=== PATIENT | female | born 1965 | race American Indian/Alaskan Native ===

== ENCOUNTER 2022-02-02 10:13 | Emergency (ER) | payer MEDICAID ==
[2022-02-02] MEDS ORDERED: SODIUM CHLORIDE 0.9% 1000 ML 1,000 ML IV ONE (11:16)
[2022-02-02] MEDS ORDERED: ONDANSETRON 4 MG/2 ML INJ IV ONE (11:16)
[2022-02-02] MEDS ORDERED: MORPHINE 4 MG/1 ML INJ IV ONE (11:16)
[2022-02-02 13:21] LABS: Blood Urea Nitrogen 8 mg/dL (7-17); Calcium 8.9 mg/dL (8.4-10.2); Hemolysis Index 46
[2022-02-02 13:34] LABS: Basophils # (Auto) 0.1 K/mm3 (0.0-0.1); Basophils % (Auto) 1.1 % (0.0-1.8); Eosinophils % (Auto) 0.4 % (0.0-4.3); Hematocrit 42.2 % (30.3-42.9); Hemoglobin 13.6 gm/dl (10.1-14.3); Lymphocytes # (Auto) 1.5 K/mm3 (1.2-5.4); Lymphocytes % (Auto) 22.9 % (13.4-35.0); Mean Corpuscular HGB Conc 32 % (30-34); Mean Corpuscular Volume 80 fl (79-97); Monocytes # (Auto) 0.5 K/mm3 (0.0-0.8); Monocytes % (Auto) 7.8 % (0.0-7.3); Platelet Count 261 K/mm3 (140-440); Red Blood Count 5.29 M/mm3 (3.65-5.03); Red Cell Distribution Width 15.8 % (13.2-15.2)
[2022-02-02 13:51] LABS: BUN/Creatinine Ratio 11
[2022-02-02 14:34] LABS: Bacteria,Urine 1+ /HPF (Negative); Hyaline Casts,Urine 1 /LPF; Mucus,Urine FEW /HPF
[2022-02-02 14:36] LABS: Color,Urine Straw (Yellow)
[2022-02-02 14:46] LABS: Amphetamine Screen,Urine Negative; Benzodiazepines Screen,Urine Negative; Cannabinoid Screen,Urine Negative; Cocaine Screen,Urine Negative; Methadone Screen,Urine Negative; Opiate Screen,Urine Negative
--- NOTE | 2022-02-02 14:55 | Cat Scan Report ---
CT ABDOMEN AND PELVIS WITH CONTRAST HISTORY: pain COMPARISON: None. TECHNIQUE: Axial CT images were obtained through the abdomen and pelvis after 100 cc of Omnipaque 350 IV contrast. Sagittal and coronal reformatted images. All CT scans at this location are performed us ing CT dose reduction for ALARA by means of automated exposure control. FINDINGS: CT ABDOMEN: Lung Bases: Clear. Moderate hiatal hernia is noted. Liver: There is mild hepatic steatosis. No enlargement or mass. Biliary: Cholelithiasis. No evidence for acute cholecystitis or biliary dilatation. Spleen: No significant abnormality. Unenlarged. Pancreas: No significant abnormality. Adrenals: No significant abnormality. Kidneys: Few scattered simple appearing renal cysts are noted measuring up to 1.5 cm. No hydronephros is. Lymphatics: No pathologic adenopathy. Vasculature: No significant abnormality. Bowel/Peritoneum: No significant abnormality. No free air. No free fluid. Normal appendix. CT PELVIS: : The uterus is mildly enlarged and lobular consistent with fibroid disease. The adnexa are unremar kable. Normal bladder. Osseous Structures: No significant abnormality. Additional Findings: None IMPRESSION: No acute inflammatory process. Hepatic steatosis. Cholelithiasis but no evidence for acute cholecystitis. Hiatal hernia. Moderate uterine fibroid disease. Signer Name: Williams Urbina Jr, MD Signed: 02/02/2022 2:50 PM Workstation Name: [id number]
[2022-02-02 16:37] LABS: Alanine Aminotransferase 18 units/L (7-56); Blood Urea Nitrogen 7 mg/dL (7-17); Calcium 8.8 mg/dL (8.4-10.2); Hemolysis Index 11
[2022-02-02 16:43] LABS: BUN/Creatinine Ratio 12
--- NOTE | 2022-02-02 16:59 | Emergency Department Report ---
ED General Adult HPI - General Chief complaint: Abdominal Pain Stated complaint: KIDNEY STONES PUI?: No Time Seen by Provider: 02/02/22 11:11 Source: patient, EMS Mode of arrival: Stretcher Limitations: No Limitations - History of Present Illness Initial comments: PATIENT REPORTS LOWER FLANK AND BACK PAIN. PATIENT REPORTS A HISTORY OF KIDNEY STONES AND STATES "THE PAIN FEELS THE SAME" -: Gradual, week(s) (3) Location: abdomen Radiation: back Severity scale (0 -10): 3 Quality: aching Consistency: intermittent Improves with: none, immobilization Associated Symptoms: denies: denies other symptoms, confusion, chest pain, cou gh, headaches, loss of appetite, malaise, nausea/vomiting Treatments Prior to Arrival: none - Related Data Allergies Allergy/AdvReac Type Severity Reaction Status Date / Time lisinopril Allergy Angioedema Verified 02/02/22 10:17 ED Review of Systems ROS: Stated complaint: KIDNEY STONES Other details as noted in HPI Constitutional: denies: chills, fever Eyes: denies: eye pain, eye discharge, vision change ENT: denies: ear pain, throat pain Respiratory: denies: cough, shortness of breath, wheezing Cardiovascular: denies: chest pain, palpitations Endocrine: no symptoms reported Gastrointestinal: denies: abdominal pain, nausea, diarrhea Genitourinary: denies: urgency, dysuria, discharge Musculoskeletal: denies: back pain, joint swelling, arthralgia Skin: denies: rash, lesions Neurological: denies: headache, weakness, paresthesias Psychiatric: denies: anxiety, depression Hematological/Lymphatic: denies: easy bleeding, easy bruising ED Past Medical Hx - Past Medical History Previous Medical History?: No Hx Hypertension: No - Social History Smoking Status: Never Smoker Substance Use Type: None ED Physical Exam - General Limitations: No Limitations General appearance: alert, in no apparent distress - Head Head exam: Present: atraumatic, normocephalic - Eye Eye exam: Present: normal appearance - ENT ENT exam: Present: mucous membranes moist - Neck Neck exam: Present: normal inspection - Respiratory Respiratory exam: Present: normal lung sounds bilaterally. Absent: respiratory distress - Cardiovascular Cardiovascular Exam: Present: regular rate, normal rhythm. Absent: systolic murmur, diastolic murmur, rubs, gallop - GI/Abdominal GI/Abdominal exam: Present: soft, tenderness, normal bowel sounds - Extremities Exam Extremities exam: Present: normal inspection - Back Exam Back exam: Present: normal inspection - Neurological Exam Neurological exam: Present: alert, oriented X3 - Psychiatric Psychiatric exam: Present: normal affect, normal mood - Skin Skin exam: Present: warm, dry, intact, normal color. Absent: rash ED Course Vital Signs 02/02/22 02/02/22 10:18 11:07 Temperature 98.6 F Pulse Rate 80 69 Respiratory 18 17 Rate Blood Pressure 137/76 125/82 [Left] O2 Sat by Pulse 99 96 Oximetry ED Medical Decision Making - Lab Data Result diagrams: 02/02/22 11:28 02/02/22 15:44 - Radiology Data Radiology results: report reviewed, image reviewed - Medical Decision Making work up showed uti ,. ct scan shwoed fibroid and galls tones, normal wbc no fever, no LFTs ot T bili elevation Critical care attestation.: If time is entered above; I have spent that time in minutes in the direct care of this critically ill patient, excluding procedure time. ED Disposition Clinical Impression: UTI (urinary tract infection), Fibroid, Gall stones Disposition: 01 HOME / SELF CARE / HOMELESS Is pt being admited?: No Does the pt Need Aspirin: No Condition: Stable Instructions: Abdominal Pain (ED), Cholelithiasis, Urinary Tract Infection, Adult, Uterine Fibroids, [id number] Referrals: PRIMARY CARE, [Primary Care Provider] - 3-5 Days TRINITY AVITIA DO [Staff Physician] - 3-5 Days
[2022-02-02 17:26] VITALS: BP 136/76
== END 2022-02-02 17:27 | disposition home or self-care (01) ==
LOC: ED 10:13
DX: N39.0 Urinary tract infection, site not specified (principal); K80.80 Other cholelithiasis without obstruction; D21.9 Benign neoplasm of connective and other soft tissue, unspecified; Z79.899 Other long term (current) drug therapy
CPT/HCPCS: 36415; 74177; 80048; 80053; 80307; 81001; 82150; 83690; 85025; 86140; 87086; 96361; 96374; 96375; 99284; J2270; J2405; J7030; Q9967